=== PATIENT | male | born 1955 | race Caucasian/White ===

== ENCOUNTER 2018-08-11 13:21 | Emergency (ER) | payer MEDICAID, MEDICARE ==
[~2018-08-11] VITALS: Ht 177.8 cm; Wt 121.9 kg
[~2018-08-11 13:21] MED LIST: ASPI-496 PO; LISI-170 PO; METO25TA35 PO; MULT-257 PO; OMEG1CAP23 PO; SIMV40TA3 PO
--- NOTE | 2018-08-11 13:42 | NUR ---
PATIENT PRESENTS TO ED TODAY FOR DIZZINESS STARTING THIS AM WHILE GETTING UP TO THE BATHROOM WHEN OFF OXYGEN AT 1100, NEAR SYNCOPAL EPISODE, DENIES FALLING/HITTING HEAD. 3L HOME O2, 95% 3L NC UPON ARRIVAL TO RM 12, HX HTN, DM, HYPERLIPIDEMIA. [employer] CONSULTANT ON PATIENT, MD AT BEDSIDE, AWAITING MD ORDERS. CALL LIGHT WITHIN REACH. Addendum: 08/11/18 at 1356 by PETER CORRECTION: NO DM, DOES HAVE A HISTORY OF SD X 2.
[2018-08-11] MEDS ORDERED: ATOR-2 PO (14:00)
[2018-08-11] MEDS ORDERED: MECLIZINE CHEWABLE 25 MG TAB PO ONE (14:00)
--- NOTE | 2018-08-11 14:00 | NUR ---
PATIENT NOW 95% 2L NC AT THIS TIME. NADN.
[2018-08-11] MEDS ORDERED: MULT-717 PO (14:02)
[2018-08-11] MEDS ORDERED: MECLIZINE CHEWABLE 25 MG TAB ONE (14:05)
[2018-08-11 14:13] LABS: BASOPHILS # (AUTO) 0.02 x10^3/uL (0-0.1); BASOPHILS % (AUTO) 0 % (0-1); EOSINOPHILS # (AUTO) 0.16 x10^3/uL (0-0.4); EOSINOPHILS % (AUTO) 3 % (1-7); LYMPHOCYTES # (AUTO) 1.14 x10^3/uL (1-3.4); LYMPHOCYTES % (AUTO) 19 % (22-44); MD NO; MEAN CORPUSCULAR HEMOGLOBIN 30.1 pg (27.5-34.5); MEAN CORPUSCULAR HGB CONC 32.5 g/dL (33.2-36.2); MEAN CORPUSCULAR VOLUME 92.7 fL (81-97); MEAN PLATELET VOLUME 9.3 fL (7.4-10.4); MONOCYTES # (AUTO) 0.46 x10^3/uL (0.2-0.8); MONOCYTES % (AUTO) 8 % (2-9); NEUTROPHILS % (AUTO) 70 % (42-75); PLATELET COUNT 169 x10^3/uL (130-400); RED BLOOD COUNT 4.75 x10^6/uL (4.38-5.82); RED CELL DISTRIBUTION WIDTH 14.4 % (9.4-14.8)
[2018-08-11 14:23] LABS: ALBUMIN 3.5 g/dL (3.4-5.0); ANION GAP 3 mmol/L (5-15); CALCIUM 8.8 mg/dL (8.5-10.1); CHLORIDE 103 mmol/L (98-107); CREATININE 1.19 mg/dL (0.7-1.3)
--- NOTE | 2018-08-11 15:09 | NUR ---
REUSLTS BACK, CHART UP FOR RECHECK.
[2018-08-11] MEDS ORDERED: SODIUM CHLORIDE 0.9% 1,000ML IVBOLUS ONE (15:30)
--- NOTE | 2018-08-11 15:43 | NUR ---
NEW ORDERS, IV STARTED, IVF ADMINISTERED PER MD ORDER. PA AT BEDSIDE. AWAITING IVF TO FINISH, PATIENT SITTING IN GURNEY, ON PHONE, SON AT BEDSIDE, NADN. VS UPDATED IN CHART.
[2018-08-11 16:35] VITALS: BP 140/83
--- NOTE | 2018-08-11 16:35 | NUR ---
Patient/Caregiver given discharge instructions and they have confirmed that they understand the instructions. Patient ambulatory with steady gait. Patient DC'd with home O2 brought in by patient.
== END 2018-08-11 16:38 | disposition home or self-care (01) ==
LOC: ED 15:40
DX: H81.391 Other peripheral vertigo, right ear (principal); H81.11 Benign paroxysmal vertigo, right ear; E11.65 Type 2 diabetes mellitus with hyperglycemia; I10 Essential (primary) hypertension; E78.00 Pure hypercholesterolemia, unspecified; I25.10 Atherosclerotic heart disease of native coronary artery without angina pectoris
CPT/HCPCS: 36415; 80048; 82040; 85025; 93005; 96360; 99284; J7030